=== PATIENT | female | born 1955 ===

== ENCOUNTER 2018-09-02 20:58 | Emergency (ER) | payer OTHER ==
[2018-09-02 20:58] VITALS: BMI 28.3
[2018-09-02 21:55] LABS: SQUAMOUS EPITHIAL < 1 /hpf (0-5); URINE BACTERIA RARE (<OCC); URINE BILIRUBIN NEGATIVE (NEGATIVE); URINE BLOOD NEGATIVE (NEGATIVE); URINE CLARITY Clear (Clear); URINE COLOR Colorless (YELLOW); URINE GLUCOSE (UA) NORMAL (Normal); URINE LEUKOCYTE ESTERASE NEG Leu/uL (Negative); URINE PROTEIN NEGATIVE (NEGATIVE); URINE UROBILINOGEN NORMAL mg/dL (0.2-1.0)
--- NOTE | 2018-09-02 22:11 | C.PDOC ---
History Of Present Illness 63 year old female presents to the ER with a complaint of half day of mild headache, body aches, sore throat, and occasional frequency. Patient has many sick contacts at home with viral syndrome including her grandson. She took cough medication with mild improvement. Time Seen by Provider: 09/02/18 21:22 Chief Complaint (Nursing): Fever History Per: Patient History/Exam Limitations: no limitations Onset/Duration Of Symptoms: Hrs Current Symptoms Are (Timing): Still Present Associated Symptoms: Sore Throat, Myalgias, Other (Frequency, Headache) Recent travel outside of the [place]: No Past Medical History Reviewed: Historical Data, Nursing Documentation, Vital Signs Vital Signs: Last Vital Signs Temp 98.7 F 09/02/18 21:06 Pulse 98 H 09/02/18 21:06 Resp 16 09/02/18 21:06 BP 143/87 09/02/18 21:06 Pulse Ox 98 09/02/18 21:06 - Medical History PMH: Anxiety, Depression, Diabetes, HTN, Hypercholesterolemia - [facility] Procedures ESOPHAGOGASTRODUODENOSCOPY [EGD] W/CLOSED BIOPSY (06/25/14) Family History: States: Unknown Family Hx - Social History Hx Tobacco Use: No Hx Alcohol Use: No Hx Substance Use: No - Immunization History Hx Tetanus Toxoid Vaccination: No Hx Influenza Vaccination: No Hx Pneumococcal Vaccination: No Review Of Systems Constitutional: Negative for: Fever, Chills ENT: Positive for: Throat Pain Cardiovascular: Negative for: Chest Pain, Palpitations Respiratory: Negative for: Cough, Shortness of Breath Gastrointestinal: Negative for: Nausea, Vomiting Musculoskeletal: Positive for: Other (Body aches) Neurological: Positive for: Headache Physical Exam - Physical Exam Appears: Non-toxic, No Acute Distress, Other ( female) Skin: Normal Color, Warm, Dry Head: Atraumatic, Normacephalic Eye(s): bilateral: Normal Inspection Ear(s): Bilateral: Normal Nose: Normal Oral Mucosa: Moist Throat: Normal, No Erythema, No Exudate Neck: Normal, Supple Chest: Symmetrical, No Tenderness Cardiovascular: Rhythm Regular Respiratory: Normal Breath Sounds, No Rales, No Rhonchi, No Wheezing Gastrointestinal/Abdominal: Soft, No Tenderness Neurological/Psych: Oriented x3, Normal Speech ED Course And Treatment - Laboratory Results Lab Results: Urine Color Colorless (YELLOW) 09/02/18 21:43 Urine Clarity Clear (Clear) 09/02/18 21:43 Urine pH 7.0 (5.0-8.0) 09/02/18 21:43 Ur Specific [place] 1.003 (1.003-1.030) 09/02/18 21:43 Urine Protein Negative mg/dL (NEGATIVE) 09/02/18 21:43 Urine Glucose (UA) Normal mg/dL (Normal) 09/02/18 21:43 Urine Ketones Negative mg/dL (NEGATIVE) 09/02/18 21:43 Urine Blood Negative (NEGATIVE) 09/02/18 21:43 Urine Nitrate Negative (NEGATIVE) 09/02/18 21:43 Urine Bilirubin Negative (NEGATIVE) 09/02/18 21:43 Urine Urobilinogen Normal mg/dL (0.2-1.0) 09/02/18 21:43 Ur Leukocyte Esterase Neg Robyn/uL (Negative) 09/02/18 21:43 Urine WBC (Auto) < 1 /hpf (0-5) 09/02/18 21:43 Urine RBC (Auto) < 1 /hpf (0-3) 09/02/18 21:43 Ur Squamous Epith Cells < 1 /hpf (0-5) 09/02/18 21:43 Urine Bacteria Rare (<OCC) 09/02/18 21:43 Lab Interpretation: Normal (ua nl) O2 Sat by Pulse Oximetry: 98 Medical Decision Making Medical Decision Making: viral syndrome no s/s of influenza many home close contacts w same UA clean Disposition Doctor Will See Patient In The: Office Counseled Patient/Family Regarding: Studies Performed, Diagnosis - Disposition Referrals: Jason Villela [Staff Provider] - Disposition: HOME/ ROUTINE Disposition Time: 22:10 Condition: GOOD Additional Instructions: sigue Dayquil o' Nyquil oscar dirijidos no sale de la casa hasta que no tiene fiebre por 24 horas Sigue con patino medido Examen de la orina NORMAL Instructions: Viral Syndrome (DC) Forms: [facility] (Irish) Print Language: GUATEMALAN - Clinical Impression Clinical Impression: Viral syndrome - Scribe Statement The provider has reviewed the documentation as recorded by the Scribe Ivan Barker All medical record entries made by the Scribe were at my direction and personally dictated by me. I have reviewed the chart and agree that the record accurately reflects my personal performance of the history, physical exam, m edical decision making, and the department course for this patient. I have also personally directed, reviewed, and agree with the discharge instructions and disposition.
[2018-09-02 22:30] VITALS: BP 136/79; PULSE 99; RESP 18; TEMP 100
[2018-09-02 23:06] VITALS: O2SAT 98
== END 2018-09-02 22:26 | disposition home or self-care (01) ==
LOC: C.ER 20:58
DX: B34.9 Viral infection, unspecified (principal)